=== PATIENT | male | born 1975 | race Caucasian/White ===

== ENCOUNTER → 2021-06-28 09:03 | Outpatient (CLI) | payer OTHER, SELFPAY ==
--- NOTE | ~2021-06-28 | MR_ITS ---
EXAMINATION: MR shoulder RT wo con DATE: 06/28/2021 09:54 INDICATION: Right shoulder pain TECHNIQUE: Magnetic resonance imaging (MRI) of the right shoulder was performed without intravenous c ontrast. Sequences included axial PD-weighted FS FSE, coronal oblique PD-weighted FS FSE, coronal obl ique T2-weighted FS FSE, sagittal PD-weighted FS FSE, and sagittal T1-weighted SE. COMPARISON: None. FINDINGS: Coracoacromial arch: The acromion undersurface is curved in morphology (type II). The coracoacromial ligament is normal. M ild acromioclavicular osteoarthritis. Rotator cuff: Mild supraspinatus, infraspinatus and subscapularis tendinopathy without discrete tear. The teres min or tendon is normal. Normal rotator cuff muscle bulk and signal. Biceps tendon, glenoid labrum and glenohumeral cartilage: Long head of the biceps tendon is normal. Mild glenohumeral osteoarthritis with partial thickness cho ndral ulceration and deep fissuring along the superomedial the inferomedial aspect of the humeral hea d with tiny focus of cystlike change and mild scattered subarticular edema-like marrow signal changes . There are also small marginal osteophytes along the inferior margin of the humeral head. Additional shallow chondral ulceration and deeper fissuring at the glenoid with scattered mild subarticular ranjit ma-like changes at the inferior third of the glenoid and at the superior rim. There is a linear jayden l tear at the base of the 10:30 position of the glenoid labrum and more irregular increased signal co nsistent with degenerative tearing at the 11:00 position of the anterosuperior glenoid labrum. Unclea r whether the tear extends across intervening superior labrum. Fluid: Physiologic amount of fluid in the long head biceps tendon sheath. Small glenohumeral joint effusion. Small likely loose body at the posterior recess of the joint space. Mild increased fluid signal in t he subacromial/subdeltoid bursa consistent with mild bursitis. Bones: Bone alignment is normal. No fracture or pathologic marrow replacing process. Is mild cystic change a long both the middle facet and lesser tuberosity footplate of the rotator cuff. IMPRESSION: 1. 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 2. Tears at the anterosuperior and posterosuperior glenoid labrum. 3. Mild supraspinatus, infraspinatus and subscapularis tendinopathy without discrete tear. Reviewed, dictated and finalized at location A. [employer] IMPRESSION: 1. Mild glenohumeral osteoarthritis with high-grade chondromalacia at both the glenoid and humeral head. 2. Tears at the anterosuperior and posterosuperior glenoid labrum. 3. Mild supraspinatus, infraspinatus and subscapularis tendinopathy without dis crete tear.
== END ==
PROVIDERS: Visit Provider Physician Assistant
DX: M19.011 Primary osteoarthritis, right shoulder (principal); M75.101 Unspecified rotator cuff tear or rupture of right shoulder, not specified as traumatic
CPT/HCPCS: 73221

== ENCOUNTER 2023-09-30 16:30 | Outpatient (CLI) | payer OTHER, SELFPAY ==
--- NOTE | ~2023-09-30 | XR_ITS ---
EXAM: XR foot LT min 3V DATE: 09/30/2023 16:42 HISTORY: M79.672 - Pain in left foot . COMPARISON: None available. FINDINGS: Normal mineralization. No fracture or dislocation. No lytic or blastic lesion. Mild scatte red degenerative changes. No erosion or periosteal change. Soft tissues within normal limits. IMPRESSION: No acute osseous finding in the left foot. Reviewed, dictated and finalized at location K.
== END 2023-09-30 16:31 ==
PROVIDERS: PCP Physician Assistant; Visit Provider Physician Assistant
DX: M79.672 Pain in left foot (principal); S93.529A Sprain of metatarsophalangeal joint of unspecified toe(s), initial encounter; X58.XXXA Exposure to other specified factors, initial encounter
CPT/HCPCS: 73630

== ENCOUNTER 2024-02-12 06:17 | Day surgery (SDC) | payer OTHER, SELFPAY ==
[2024-01-09 10:52] VITALS: BMI 24.4
[2024-01-28 13:10] VITALS: BMI 23.7
[2024-02-12 06:51] VITALS: BMI 23.6
[2024-02-12 06:54] VITALS: BP 96/73; PULSE 69; RESP 18; TEMP 37.1; O2SAT 99
--- NOTE | 2024-02-12 06:59 | PM.HPGS ---
History of Present Illness History of Present Illness Consent: Risks, benefits, and alternatives have been discussed and questions answered. Patient agrees to proceed with procedure. Chief complaint: Neoplasm Screening Narrative: Charly Whatley is a 48 year old male patient presents for screening colonoscopy. Patient reports his current weight appetite and bowel movements are normal. He denies abdominal pain. Patient has had no bleeding. Family history is noncontributory. Review of Systems Review of Systems: All systems reviewed & are unremarkable except as noted in HPI and below PMFSH Past Medical History Medical History History of MRSA infection Family History Family History Father Hypertension Atrial fibrillation Social History Social History Smoking status: Never smoker Alcohol intake: current Drinks per week: 6 Substance use: never Living arrangements: with family Occupation/Education: occupation Gender identity (if verbalized by the patient): Male Sexual Orientation (if Verbalized by the Patient): Straight or Heterosexual Spiritual care concerns: No Meds Home Medications and Allergies Home Medications Medication Instructions Recorded Confirmed Type sodium,potassium,mag sulfates 17.5 See Rx Instructions PO .COMPLEX 01/12/24 02/12/24 Rx gram-3.13 gram-1.6 gram oral soln #354 mL (Suprep Bowel Prep Kit) triamcinolone acetonide 55 mcg 1 spray intranasal DAILY 01/28/24 02/12/24 History nasal spray aerosol (Nasacort Allergy) Allergies Allergy/AdvReac Type Severity Reaction Status Date / Time No Known Allergies Allergy Verified 02/12/24 06:49 Vital Signs Vital Signs - 24 hr 02/12/24 06:54 Temperature 98.8 F Pulse Rate 69 Respiratory Rate 18 Blood Pressure 96/73 L Pulse Oximetry 99 Oxygen Delivery Room Air Exam Narrative: Physical exam reveals patient to be alert. Vital signs stable. HEENT exam is unremarkable. Patient is anicteric. Lungs are clear to auscultation and percussion. Heart is without murmur or extra sounds. Abdomen bowel sounds are present soft nontender with no organomegaly. Digital external rectal exam is normal. Assessment and Plan Assessment and plan (1) Screen for colon cancer: Code(s): Z12.11 - Encounter for screening for malignant neoplasm of colon Status: Acute Assessment and Plan: Patient presents today for screening colonoscopy. He appears to be of average risk for colon polyps. Further recommendations may be given after endoscopy.
[2024-02-12] MEDS: LACTATED RINGERS 1,000 ML 150 ML IV CONT (07:15)
--- NOTE | 2024-02-12 07:15 | P.PNAN_ITS ---
Anes - Initial Pre Proc Eval Procedure: Operation Date: 02/12/24 07:30 Proposed Procedures p Screening Colonoscopy - Oniel Bermudez MD Date/Time: 02/12/24 07:15 Surgeon: Oniel Bermudez MD Pre Op Diagnosis: Neoplasm Screening Patient Data Age: 48 Gender: M Height: 1.93 m Weight: 88.2 kg Last Vital Signs Temp 37.1 C 02/12/24 06:54 Pulse 69 02/12/24 06:54 Resp 18 02/12/24 06:54 BP 96/73 L 02/12/24 06:54 Pulse Ox 99 02/12/24 06:54 O2 Del Method Room Air 02/12/24 06:54 Allergies Allergy/AdvReac Type Severity Reaction Status Date / Time No Known Allergies Allergy Verified 02/12/24 06:49 Home Medications Medication Instructions Recorded Confirmed Type sodium,potassium,mag sulfates 17.5 See Rx Instructions PO .COMPLEX 01/12/24 02/12/24 Rx gram-3.13 gram-1.6 gram oral soln #354 mL (Suprep Bowel Prep Kit) triamcinolone acetonide 55 mcg 1 spray intranasal DAILY 01/28/24 02/12/24 History nasal spray aerosol (Nasacort Allergy) Patient hx anesthesia problems: none Family hx anesthesia problems: none Results Review: All pre-operative results and documents have been reviewed as part of the pre- operative evaluation. [facility] Past Medical History Medical History History of MRSA infection Surgical History Surgical History (Updated 02/12/24 @ 07:15 by Rogerio Rivera MD) History of shoulder surgery Family History Family History Father Hypertension Atrial fibrillation Social History Social History Smoking status: Never smoker Alcohol intake: current Drinks per week: 6 Substance use: never Living arrangements: with family Occupation/Education: occupation Gender identity (if verbalized by the patient): Male Sexual Orientation (if Verbalized by the Patient): Straight or Heterosexual Spiritual care concerns: No Anes - Eval Final PreProcedure Day of Procedure 02/12/24 07:15 Patient weight: normal Heart: regular rate and rhythm Lungs: clear to auscultation Airway: Mallampati scale class II Neurological: alert and oriented Last oral intake: >/= 8 hours ASA classification: I Emergent: no Anesthetic plan: proceed Anesthesia type and monitoring: general GIVS and standard monitoring Results Review: All pre-operative results and documents have been reviewed as part of the pre- operative evaluation. Informed Consent: The patient's anesthetic plan and its attendant risks and benefits were discussed with the patient/family/POA. Questions were solicited and answers provided to the satisfaction of the patient/family/POA.
[2024-02-12 07:32] VITALS: BP 91/60; PULSE 57; RESP 16; O2SAT 100
[2024-02-12 07:42] VITALS: BP 90/55; PULSE 58; RESP 15; O2SAT 99
[2024-02-12 07:52] VITALS: BP 96/74; PULSE 54; RESP 14; O2SAT 100
--- NOTE | 2024-02-12 08:13 | WPDANESPN ---
Anes - Prog Note Post-Op Date/Time: 02/12/24 08:13 Cardiovascular status: normal Respiratory status: normal Airway patency: baseline Mental status: baseline Post-Op hydration status: normal Vital Signs: Last Vital Signs Temp 37.1 C 02/12/24 06:54 Pulse 54 L 02/12/24 07:52 Resp 14 02/12/24 07:52 BP 96/74 L 02/12/24 07:52 Pulse Ox 100 02/12/24 07:52 O2 Del Method Room Air 02/12/24 07:52 Pain Score (VAS): 0/10 I/O: Intake & Output 02/11/24 02/12/24 02/12/24 23:59 07:59 15:59 Intake Total 400 300 Balance 400 300 Patient Feedback: Patient satisfied with anesthetic care.
== END 2024-02-12 08:04 | disposition home or self-care (01) ==
PROVIDERS: PCP Family Medicine; Visit Provider Internal Medicine Gastroenterology
PROC: 0DJD8ZZ Inspection of Lower Intestinal Tract, Via Natural or Artificial Opening Endoscopic (ICD-10-PCS; CPT 45378; principal; 2024-02-12 07:30)
DX: Z12.11 Encounter for screening for malignant neoplasm of colon (principal); D12.5 Benign neoplasm of sigmoid colon; K64.8 Other hemorrhoids
CPT/HCPCS: 45385

== ENCOUNTER 2024-02-12 07:00 | Outpatient (NON) | payer OTHER, SELFPAY | END 2024-02-12 07:01 | disposition home or self-care (01) | LOC: ANHLAB 02-13 09:56 | PROVIDERS: PCP Family Medicine; Visit Provider Internal Medicine Gastroenterology | DX: K63.5 Polyp of colon (principal); Z12.11 Encounter for screening for malignant neoplasm of colon | CPT/HCPCS: 88305 ==